=== PATIENT | female | born 1940 | race Hispanic/Latino ===

== ENCOUNTER 2018-05-01 07:19 | Emergency (ER) | payer MEDICARE ==
[~2018-05-01] VITALS: Ht 149.9 cm; Wt 63.5 kg
--- NOTE | 2018-05-01 07:52 | NUR ---
DR. SCOTT AT BEDSIDE FOR PT EVAL AT THIS TIME.
[2018-05-01] MEDS ORDERED: KETOROLAC TROMETHAMINE 60 MG/2 ML VIAL IM ONE (08:00)
[2018-05-01] MEDS ORDERED: HYDROCODONE/APAP 5MG-325MG TAB PO ONE (08:00)
--- NOTE | 2018-05-01 08:27 | Diagnostic Imaging Report ---
Exam: Left hip radiographs-2 views; AP radiograph of the pelvis; left knee radiographs-3 views Comparison: None. Findings: Left hip: No evidence of acute fracture, malalignment, or soft tissue abnormality. There are mild left hip degenerative changes. Pelvis: No evidence of acute fracture or malalignment. Mild bilateral hip degenerative changes. Partially visualized degenerative changes of the lower lumbar spine. Bowel gas partially obscures visualization of the sacrum. Well-circumscribed, likely soft tissue calcification in the left lower quadrant. Left knee: There are mild tricompartmental degenerative changes of the knee with joint space narrowing and bony osteophyte formation. No evidence of acute fracture, malalignment, or joint effusion. 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 No acute radiographic abnormality. Signed by: Dr. Ilia Loyola MD on 05/01/2018 8:23 AM
[2018-05-01 09:42] VITALS: BP 158/70
== END 2018-05-01 10:00 | disposition home or self-care (01) ==
LOC: ER 07:19
DX: M54.42 Lumbago with sciatica, left side (principal); R26.2 Difficulty in walking, not elsewhere classified; G89.29 Other chronic pain; I10 Essential (primary) hypertension
CPT/HCPCS: 73502; 73562; 99283; J1885

== ENCOUNTER 2023-01-05 07:31 | Inpatient (IN) | payer MEDICARE ==
[~2023-01-05] VITALS: Ht 144.8 cm; Wt 97.5 kg
[2023-01-05] MEDS ORDERED: ONDANSETRON HCL INJ 2MG/ML 2ML 2 MG/ML VIAL IV STA (07:41)
[2023-01-05] MEDS ORDERED: Morphine 4mg INJECTION 4 MG/ML INJ IV ONE (07:45)
[2023-01-05] MEDS ORDERED: SODIUM CHLORIDE 0.9% 1000ML 1,000 ML IV ONE (07:45)
[2023-01-05 07:57] LABS: BASOPHILS % 0.1 % (0.0-1.0); EOSINOPHILS % 0.4 % (0.0-6.0); HEMATOCRIT 38.4 % (34.2-44.1); HEMOGLOBIN 12.8 g/dL (12.0-16.0); LYMPHOCYTES # (AUTO) 1.2 (1.0-3.2); LYMPHOCYTES % 17.2 % (18.0-39.1); MEAN CORPUSCULAR HEMOGLOBIN 30.5 pg (28-32); MEAN CORPUSCULAR HGB CONC 33.3 g/dL (31-35); MEAN CORPUSCULAR VOLUME 91.4 fL (81-99); MONOCYTES # (AUTO) 0.3 (0.2-0.8); MONOCYTES % 4.5 % (4.4-11.3); NEUTROPHILS # (AUTO) 5.5 (2.1-6.9); NEUTROPHILS % 77.7 % (38.7-80.0); PLATELET COUNT 226 x10e3/uL (140-360); RED CELL DISTRIBUTION WIDTH 13.1 % (11.7-14.4); WHITE BLOOD COUNT 7.04 x10e3/uL (4.8-10.8)
[2023-01-05 08:19] LABS: ALBUMIN/GLOBULIN RATIO 1.1 (0.8-2.0); ANION GAP 15.9 mmol/L (8-16); BILIRUBIN,TOTAL 0.6 mg/dL (0.2-1.2); CALCIUM 8.7 mg/dL (8.4-10.2); CREATININE, SERUM 0.61 mg/dL (0.57-1.11); TOTAL PROTEIN 7.7 g/dL (6.5-8.1)
[2023-01-05 08:21] LABS: POTASSIUM 2.9 mmol/L (3.5-5.1)
[2023-01-05] MEDS ORDERED: IOPAMIDOL 370 MG/ML 100 ML INFUS..BTL INJ ONE (08:28)
[2023-01-05] MEDS ORDERED: POTASSIUM CHLORIDE 20MEQ/100ML 200 ML IV ONE (08:30)
[2023-01-05] MEDS ORDERED: CIPROFLOXACIN 400 MG/D5W 200ML 200 ML IV ONE (11:00)
[2023-01-05] MEDS ORDERED: METRONIDAZOLE 500MG/NS 100ML 100 ML IV ONE (11:00)
[2023-01-05] MEDS ORDERED: ENOXAPARIN INJ 80 MG/0.8 ML SYR SC STA (11:43)
[2023-01-05] MEDS ORDERED: ONDANSETRON HCL INJ 2MG/ML 2ML 2 MG/ML VIAL IV PRN (12:00)
[2023-01-05] MEDS ORDERED: METOCLOPRAMIDE HCL 10 MG/2ML VIAL ONE (13:09)
[2023-01-05] MEDS ORDERED: PROPOFOL IV EMULSION 10 MG/ML 20 ML VIAL ONE (13:09)
[2023-01-05] MEDS ORDERED: ONDANSETRON HCL INJ 2MG/ML 2ML 2 MG/ML VIAL ONE (13:09)
[2023-01-05] MEDS ORDERED: LIDOCAINE HCL 2% LOCAL INJ 5 ML SDV VIAL INJ ONE (13:09)
[2023-01-05 13:15] VITALS: BP_SYST 129; BP_SYST 139; BP_DIAS 73; BP_DIAS 79; PULSE 52; RESP 19; TEMP 98.2; O2SAT 99
[2023-01-05 13:28] VITALS: BP 129/73; PULSE 52; RESP 16; TEMP 98.2; O2SAT 99
[2023-01-05] MEDS: SODIUM CHLORIDE 0.9% 1000ML 1,000 ML IV SCH ×2 (15:18→20:55)
[2023-01-05 15:48] VITALS: BP 118/53; PULSE 63; RESP 16; TEMP 98; O2SAT 99
[2023-01-05 20:00] VITALS: BP 113/53; PULSE 84; PULSE 86; RESP 18; TEMP 98.8; O2SAT 99
[2023-01-05 21:00] VITALS: BP 118/53; PULSE 63; RESP 16; TEMP 98; O2SAT 99
[2023-01-06] VITALS (8 sets, daily range): BP systolic 105–163; BP diastolic 53–87; PULSE 68–84; RESP 15–18; TEMP 97.7–98.7; O2SAT 97–100
[2023-01-06] MEDS: SODIUM CHLORIDE 0.9% 1000ML 1,000 ML IV SCH ×3 (06:18→23:51)
[2023-01-06 07:35] LABS: BASOPHILS % 0.6 % (0.0-1.0); EOSINOPHILS % 0.9 % (0.0-6.0); HEMATOCRIT 32.9 % (34.2-44.1); HEMOGLOBIN 10.8 g/dL (12.0-16.0); LYMPHOCYTES # (AUTO) 1.1 (1.0-3.2); LYMPHOCYTES % 32.4 % (18.0-39.1); MEAN CORPUSCULAR HEMOGLOBIN 30.4 pg (28-32); MEAN CORPUSCULAR HGB CONC 32.8 g/dL (31-35); MEAN CORPUSCULAR VOLUME 92.7 fL (81-99); MONOCYTES # (AUTO) 0.2 (0.2-0.8); MONOCYTES % 7.2 % (4.4-11.3); NEUTROPHILS % 58.9 % (38.7-80.0); PLATELET COUNT 179 x10e3/uL (140-360); RED BLOOD COUNT 3.55 x10e6/uL (3.6-5.1); RED CELL DISTRIBUTION WIDTH 13.4 % (11.7-14.4); WHITE BLOOD COUNT 3.33 x10e3/uL (4.8-10.8)
[2023-01-06 09:46] LABS: ALBUMIN 2.9 g/dL (3.5-5.0); ANION GAP 10.9 mmol/L (8-16); BILIRUBIN,TOTAL 0.5 mg/dL (0.2-1.2); CALCIUM 7.6 mg/dL (8.4-10.2); CREATININE, SERUM 0.55 mg/dL (0.57-1.11); TOTAL PROTEIN 5.8 g/dL (6.5-8.1)
[2023-01-06 09:47] LABS: POTASSIUM 2.9 mmol/L (3.5-5.1)
[2023-01-06] MEDS ORDERED: POTASSIUM CHLORIDE 10MEQ EA PO ONE ×3 (10:45→16:00)
[2023-01-06] MEDS ORDERED: LOPERAMIDE HCL 2 MG CAP PO ONE (17:00)
[2023-01-07] VITALS (8 sets, daily range): BP systolic 108–166; BP diastolic 51–86; PULSE 79–93; RESP 16–49; TEMP 97.7–98.4; O2SAT 98–100
[2023-01-07 05:52] LABS: BASOPHILS % 0.2 % (0.0-1.0); EOSINOPHILS # (AUTO) 0.1 (0.0-0.4); EOSINOPHILS % 1.5 % (0.0-6.0); HEMATOCRIT 31.2 % (34.2-44.1); HEMOGLOBIN 10.4 g/dL (12.0-16.0); LYMPHOCYTES # (AUTO) 1.3 (1.0-3.2); LYMPHOCYTES % 28.6 % (18.0-39.1); MEAN CORPUSCULAR HGB CONC 33.3 g/dL (31-35); MEAN CORPUSCULAR VOLUME 92.9 fL (81-99); MONOCYTES # (AUTO) 0.4 (0.2-0.8); MONOCYTES % 9.7 % (4.4-11.3); NEUTROPHILS # (AUTO) 2.7 (2.1-6.9); NEUTROPHILS % 59.8 % (38.7-80.0); PLATELET COUNT 179 x10e3/uL (140-360); RED BLOOD COUNT 3.36 x10e6/uL (3.6-5.1); RED CELL DISTRIBUTION WIDTH 13.6 % (11.7-14.4); WHITE BLOOD COUNT 4.54 x10e3/uL (4.8-10.8)
[2023-01-07 06:27] LABS: ANION GAP 9.8 mmol/L (8-16); BLOOD UREA NITROGEN < 5 mg/dL (7-26); CALCIUM 8.1 mg/dL (8.4-10.2); CARBON DIOXIDE 19 mmol/L (22-29); CHLORIDE 116 mmol/L (98-107); CREATININE, SERUM 0.51 mg/dL (0.57-1.11); EST GLOMERULAR FILTRATION RATE 94 ML/MIN (>=60); GLUCOSE 100 mg/dL (74-118); POTASSIUM 3.8 mmol/L (3.5-5.1); SODIUM 141 mmol/L (136-145)
[2023-01-07 07:13] LABS: BUN/CREATININE RATIO 10 (6-25)
[2023-01-07] MEDS: SODIUM CHLORIDE 0.9% 1000ML 1,000 ML IV SCH (13:03)
[2023-01-07] MEDS ORDERED: BISACODYL 5 MG TAB EC PO ONE ×3 (14:15→18:00)
[2023-01-07] MEDS ORDERED: HYDRALAZINE HCL 20 MG/ML VIAL IV PRN (18:45)
[2023-01-08] VITALS (9 sets, daily range): BP systolic 133–168; BP diastolic 53–80; PULSE 74–96; RESP 16–20; TEMP 97.4–98.7; O2SAT 99–100
[2023-01-08] MEDS ORDERED: BISACODYL 5 MG TAB EC PO ONE (01:45)
[2023-01-08] MEDS ORDERED: CITRATE OF MAGNESIA 300ML BOTTLE PO ONE ×2 (05:00→09:00)
[2023-01-08] MEDS: SODIUM CHLORIDE 0.9% 1000ML 1,000 ML IV SCH (06:46)
[2023-01-08 08:53] LABS: % IRON SATURATION 15 % (15-50); IRON 49 ug/dL (50-170); TOTAL IRON BINDING CAPACITY 336 ug/dL (261-478); TRANSFERRIN 240 mg/dL (180-382)
[2023-01-08 09:27] LABS: FOLATE 11.5 ng/mL (7.0-15.4)
[2023-01-08 19:18] LABS: WBC,FECAL (FECAL LACTOFERRIN) POSITIVE (NEGATIVE)
[2023-01-09] VITALS: BP 126/56; PULSE 70; RESP 22; TEMP 98.4; O2SAT 100
[2023-01-09] MEDS: SODIUM CHLORIDE 0.9% 1000ML 1,000 ML IV SCH (01:01)
[2023-01-09 04:50] VITALS: BP 144/54; PULSE 67; RESP 19; TEMP 98; O2SAT 98
[2023-01-09 08:20] VITALS: BP 138/61; PULSE 70; RESP 19; TEMP 97.8; O2SAT 98
[2023-01-09 08:44] VITALS: BP 138/61; PULSE 70; RESP 18; TEMP 97.8; O2SAT 99
[2023-01-09 12:53] VITALS: BP 154/74; PULSE 74; RESP 16; TEMP 98.1; O2SAT 100
[2023-01-09 16:08] VITALS: BP 152/74; PULSE 80; RESP 16; TEMP 98.4; O2SAT 100
== END 2023-01-09 18:52 | disposition home or self-care (01) | DRG 392 ==
LOC: ER 07:35 → ERHOLD 11:57 → MED/SURG3 13:02 → OBSVTOIN 01-08 07:47
PROVIDERS: ADMIT Internal Medicine; ATTEND Internal Medicine
PROC: 0DBN8ZX Excision of Sigmoid Colon, Via Natural or Artificial Opening Endoscopic, Diagnostic (ICD-10-PCS; principal; 2023-01-08 17:47)
DX: K52.9 Noninfective gastroenteritis and colitis, unspecified (principal); K57.30 Diverticulosis of large intestine without perforation or abscess without bleeding; E87.6 Hypokalemia; I48.91 Unspecified atrial fibrillation; I10 Essential (primary) hypertension; E78.5 Hyperlipidemia, unspecified; R31.9 Hematuria, unspecified; K63.5 Polyp of colon; K64.8 Other hemorrhoids; Z90.49 Acquired absence of other specified parts of digestive tract; Z20.822 Contact with and (suspected) exposure to COVID-19
CPT/HCPCS: 36415; 45378; 74177; 80048; 80053; 82607; 82746; 83540; 83630; 83690; 83993; 84466; 85025; 85045; 87045; 87177; 87324; 87328; 87449; 88305; 93005; 99284; G0378; J1650; J2001; J2270; J2405; J2765; J3480; J7030; Q9967; U0002

== ENCOUNTER 2023-08-24 12:38 | Emergency (ER) | payer MEDICARE ==
[~2023-08-24] VITALS: Ht 144.8 cm; Wt 97.5 kg
[2023-08-24] MEDS ORDERED: CEFTRIAXONE 1 GM VIAL IV SCH (13:00)
[2023-08-24] MEDS: ACETAMINOPHEN 325 MG TAB PO ONE (13:28)
[2023-08-24 13:36] LABS: ALBUMIN 3.9 g/dL (3.5-5.0); ANION GAP 15.7 mmol/L (8-16); BILIRUBIN,TOTAL 0.5 mg/dL (0.2-1.2); CALCIUM 9.1 mg/dL (8.4-10.2); CREATININE, SERUM 0.64 mg/dL (0.57-1.11); POTASSIUM 3.7 mmol/L (3.5-5.1)
[2023-08-24 13:37] LABS: BASOPHILS % 0.3 % (0.0-1.0); EOSINOPHILS # (AUTO) 0.1 (0.0-0.4); EOSINOPHILS % 1.3 % (0.0-6.0); HEMATOCRIT 37.2 % (34.2-44.1); LYMPHOCYTES # (AUTO) 0.7 (1.0-3.2); LYMPHOCYTES % 10.4 % (18.0-39.1); MEAN CORPUSCULAR HEMOGLOBIN 31.2 pg (28-32); MEAN CORPUSCULAR HGB CONC 32.3 g/dL (31-35); MEAN CORPUSCULAR VOLUME 96.6 fL (81-99); MONOCYTES # (AUTO) 0.5 (0.2-0.8); MONOCYTES % 7.6 % (4.4-11.3); NEUTROPHILS # (AUTO) 5.4 (2.1-6.9); NEUTROPHILS % 80.1 % (38.7-80.0); PLATELET COUNT 195 x10e3/uL (140-360); RED BLOOD COUNT 3.85 x10e6/uL (3.6-5.1); RED CELL DISTRIBUTION WIDTH 12.8 % (11.7-14.4); WHITE BLOOD COUNT 6.72 x10e3/uL (4.8-10.8)
[2023-08-24 13:54] LABS: CLARITY,URINE CLEAR (CLEAR); COLOR,URINE COLORLESS (YELLOW); LEUKOCYTE ESTERASE ,URINE TRACE (NEGATIVE); PH,URINE 6 (5 - 7)
[2023-08-24 13:55] LABS: BILIRUBIN,URINE NEGATIVE (NEGATIVE); GLUCOSE, URINE NEGATIVE (NEGATIVE); KETONES,URINE NEGATIVE (NEGATIVE); NITRITE,URINE NEGATIVE (NEGATIVE); PROTEIN,URINE DIPSTICK NEGATIVE (NEGATIVE); URINE UROBILINOGEN 0.2 mg/dL (0.2 - 1)
[2023-08-24 13:59] LABS: BACTERIA,URINE RARE /HPF; EPITHELIAL CELLS,URINE RARE /LPF; WBC,URINE (MAN) 0-5 /HPF (0-5)
[2023-08-24 14:07] LABS: INR 0.95; PROTHROMBIN TIME 13.4 seconds (11.9-14.5)
[2023-08-24 14:08] LABS: PARTIAL THROMBOPLASTIN TIME 37.1 seconds (23.8-35.5)
[2023-08-24] MEDS ORDERED: PAXLOVID 300-11 EAC1 PO (14:53)
[2023-08-24 15:00] VITALS: PULSE 87; RESP 20; TEMP 99.2; O2SAT 98
[2023-08-25] MEDS ORDERED: AZITHROMYCIN 250 MG TAB PO SCH (09:00)
== END 2023-08-24 15:15 | disposition home or self-care (01) ==
LOC: ER 12:54
DX: R50.9 Fever, unspecified (principal); U07.1 COVID-19; R05.9 Cough, unspecified; I10 Essential (primary) hypertension; E78.5 Hyperlipidemia, unspecified
CPT/HCPCS: 36415; 71046; 80053; 81001; 83605; 85025; 85610; 85730; 87040; 87086; 87400; 93005; 99284; J0456; J0696; J7050; U0002

== ENCOUNTER 2024-01-07 18:45 | Emergency (ER) | payer MEDICARE ==
[~2024-01-07] VITALS: Ht 149.9 cm; Wt 52.2 kg
[~2024-01-07 18:45] MED LIST: PAXLOVID 300-11 EAC1 PO
[2024-01-07 19:03] VITALS: PULSE 57; TEMP 98.1
[2024-01-07 20:01] LABS: STREPTOCOCCUS GRP A ANTIGEN NEGATIVE (NEGATIVE)
[2024-01-07 20:09] LABS: CORONAVIRUS COVID-19 AG NEGATIVE (NEGATIVE); INFLUENZA A AG NEGATIVE (NEGATIVE); INFLUENZA B AG NEGATIVE (NEGATIVE)
[2024-01-07] MEDS ORDERED: DOXYCYCLINE HY100 MG PO (21:26)
[2024-01-07] MEDS ORDERED: ONDANSETRON ODT4 MG SL (21:26)
[2024-01-07 21:43] VITALS: BP 132/52; PULSE 93; RESP 18; TEMP 98.5; O2SAT 98
[2024-01-07] MEDS: DOXYCYCLINE HYCLATE TABLET 100 MG TAB PO SCH (21:46)
== END 2024-01-07 21:53 | disposition home or self-care (01) ==
LOC: ER 19:35
DX: R05.9 Cough, unspecified (principal); J18.9 Pneumonia, unspecified organism; I10 Essential (primary) hypertension; E78.5 Hyperlipidemia, unspecified
CPT/HCPCS: 0223U; 71045; 83518; 87070; 87400; 87428; 99283

== ENCOUNTER 2024-01-16 19:59 | Inpatient (IN) | payer MEDICARE ==
[~2024-01-16] VITALS: Ht 149.9 cm; Wt 45.4 kg
[~2024-01-16 19:59] MED LIST changes: +DOXYCYCLINE HY100 MG PO; +ONDANSETRON ODT4 MG SL
[2024-01-16 20:44] LABS: BASOPHILS % 0.2 % (0.0-1.0); HEMATOCRIT 31.8 % (34.2-44.1); HEMOGLOBIN 9.7 g/dL (12.0-16.0); LYMPHOCYTES # (AUTO) 0.9 (1.0-3.2); LYMPHOCYTES % 5.6 % (18.0-39.1); MEAN CORPUSCULAR HEMOGLOBIN 28.4 pg (28-32); MEAN CORPUSCULAR HGB CONC 30.5 g/dL (31-35); MONOCYTES # (AUTO) 1.2 (0.2-0.8); MONOCYTES % 7.5 % (4.4-11.3); NEUTROPHILS # (AUTO) 14.2 (2.1-6.9); NEUTROPHILS % 86.3 % (38.7-80.0); PLATELET COUNT 304 x10e3/uL (140-360); RED BLOOD COUNT 3.42 x10e6/uL (3.6-5.1); WHITE BLOOD COUNT 16.51 x10e3/uL (4.8-10.8)
[2024-01-16 20:51] LABS: BILIRUBIN,URINE NEGATIVE (NEGATIVE); CLARITY,URINE CLEAR (CLEAR); COLOR,URINE YELLOW (YELLOW); GLUCOSE, URINE NEGATIVE (NEGATIVE); KETONES,URINE 1+ (NEGATIVE); LEUKOCYTE ESTERASE ,URINE NEGATIVE (NEGATIVE); NITRITE,URINE NEGATIVE (NEGATIVE); PH,URINE 5.5 (5 - 7); PROTEIN,URINE DIPSTICK NEGATIVE (NEGATIVE); URINE UROBILINOGEN 0.2 mg/dL (0.2 - 1)
[2024-01-16] MEDS: ACETAMINOPHEN 325 MG TAB PO ONE (20:57)
[2024-01-16] MEDS: SODIUM CHLORIDE 0.9% 1000ML 1,000 ML IV ONE ×2 (20:57→22:55)
[2024-01-16 20:58] LABS: ALBUMIN 3.2 g/dL (3.5-5.0); ALBUMIN/GLOBULIN RATIO 0.7 (0.8-2.0); ANION GAP 16.6 mmol/L (8-16); BILIRUBIN,TOTAL 0.9 mg/dL (0.2-1.2); CREATININE, SERUM 0.66 mg/dL (0.57-1.11); POTASSIUM 3.6 mmol/L (3.5-5.1); TOTAL PROTEIN 7.6 g/dL (6.5-8.1)
[2024-01-16 21:01] LABS: CORONAVIRUS COVID-19 AG NEGATIVE (NEGATIVE); INFLUENZA A AG NEGATIVE (NEGATIVE); INFLUENZA B AG NEGATIVE (NEGATIVE)
[2024-01-16 21:05] LABS: TROPONIN I 0.016 ng/mL (0-0.300)
[2024-01-16 21:07] LABS: BACTERIA,URINE RARE /HPF; EPITHELIAL CELLS,URINE RARE /LPF; RBC,URINE 0-5 /HPF (0-5)
[2024-01-16] MEDS ORDERED: IOPAMIDOL 370 MG/ML 100 ML INFUS..BTL INJ ONE (21:10)
[2024-01-16] MEDS ORDERED: Morphine 4mg INJECTION 4 MG/ML INJ IV PRN (22:30)
[2024-01-16 22:53] VITALS: PULSE 95; RESP 26; TEMP 99
[2024-01-17] VITALS (10 sets, daily range): BP systolic 94–128; BP diastolic 43–65; PULSE 88–104; RESP 16–21; TEMP 97.8–100; O2SAT 96–100
[2024-01-17] MEDS ORDERED: METRONIDAZOLE 500MG/NS 100ML 100 ML IV SCH
[2024-01-17] MEDS ORDERED: SODIUM CHLORIDE 0.9% 250ML 0 ML ONE (00:14)
[2024-01-17] MEDS: METRONIDAZOLE 500MG/NS 100ML 100 ML IV SCH (00:20)
[2024-01-17] MEDS ORDERED: LOSARTAN POTAS100 MG PO (01:41)
[2024-01-17] MEDS ORDERED: ALENDRONATE SOD70 MG PO (01:41)
[2024-01-17] MEDS ORDERED: ATORVASTATIN CA40 MG PO (01:41)
[2024-01-17 05:39] LABS: BASOPHILS % 0.3 % (0.0-1.0); EOSINOPHILS % 0.2 % (0.0-6.0); HEMATOCRIT 28.4 % (34.2-44.1); HEMOGLOBIN 8.7 g/dL (12.0-16.0); LYMPHOCYTES # (AUTO) 1.2 (1.0-3.2); LYMPHOCYTES % 7.8 % (18.0-39.1); MEAN CORPUSCULAR HEMOGLOBIN 28.5 pg (28-32); MEAN CORPUSCULAR HGB CONC 30.6 g/dL (31-35); MEAN CORPUSCULAR VOLUME 93.1 fL (81-99); MONOCYTES # (AUTO) 1.2 (0.2-0.8); MONOCYTES % 7.5 % (4.4-11.3); NEUTROPHILS # (AUTO) 13.3 (2.1-6.9); NEUTROPHILS % 83.6 % (38.7-80.0); PLATELET COUNT 280 x10e3/uL (140-360); RED BLOOD COUNT 3.05 x10e6/uL (3.6-5.1); RED CELL DISTRIBUTION WIDTH 14.1 % (11.7-14.4)
[2024-01-17 05:59] LABS: ALBUMIN 2.6 g/dL (3.5-5.0); ALBUMIN/GLOBULIN RATIO 0.7 (0.8-2.0); ANION GAP 13.2 mmol/L (8-16); BILIRUBIN,TOTAL 0.6 mg/dL (0.2-1.2); CALCIUM 8.4 mg/dL (8.4-10.2); CREATININE, SERUM 0.53 mg/dL (0.57-1.11); TOTAL PROTEIN 6.1 g/dL (6.5-8.1)
[2024-01-17 06:09] LABS: POTASSIUM 3.2 mmol/L (3.5-5.1)
[2024-01-17] MEDS: ONDANSETRON HCL INJ 2MG/ML 2ML 2 MG/ML VIAL IV PRN (08:38)
[2024-01-17] MEDS: ACETAMINOPHEN 325 MG TAB PO PRN (20:22)
[2024-01-17] MEDS ORDERED: SODIUM CHLORIDE 0.9% 250ML 250 ML ONE (20:26)
[2024-01-17 21:21] LABS: % IRON SATURATION 8 % (15-50); IRON 23 ug/dL (50-170); TOTAL IRON BINDING CAPACITY 284 ug/dL (261-478); TRANSFERRIN 203 mg/dL (180-382)
[2024-01-18] VITALS (11 sets, daily range): BP systolic 100–155; BP diastolic 46–84; PULSE 62–97; RESP 16–18; TEMP 97.8–98.2; O2SAT 87–100
[2024-01-18 05:05] LABS: BASOPHILS % 0.3 % (0.0-1.0); EOSINOPHILS # (AUTO) 0.1 (0.0-0.4); EOSINOPHILS % 1.1 % (0.0-6.0); HEMATOCRIT 26.2 % (34.2-44.1); HEMOGLOBIN 8.3 g/dL (12.0-16.0); LYMPHOCYTES # (AUTO) 1.7 (1.0-3.2); MEAN CORPUSCULAR HEMOGLOBIN 28.4 pg (28-32); MEAN CORPUSCULAR HGB CONC 31.7 g/dL (31-35); MEAN CORPUSCULAR VOLUME 89.7 fL (81-99); MONOCYTES # (AUTO) 0.8 (0.2-0.8); MONOCYTES % 7.9 % (4.4-11.3); NEUTROPHILS # (AUTO) 7.7 (2.1-6.9); NEUTROPHILS % 74.2 % (38.7-80.0); PLATELET COUNT 274 x10e3/uL (140-360); RED BLOOD COUNT 2.92 x10e6/uL (3.6-5.1); RED CELL DISTRIBUTION WIDTH 14.1 % (11.7-14.4); WHITE BLOOD COUNT 10.37 x10e3/uL (4.8-10.8)
[2024-01-18 05:47] LABS: ALBUMIN 2.3 g/dL (3.5-5.0); ALBUMIN/GLOBULIN RATIO 0.6 (0.8-2.0); ANION GAP 10.7 mmol/L (8-16); BILIRUBIN,TOTAL 0.6 mg/dL (0.2-1.2); CALCIUM 8.2 mg/dL (8.4-10.2); CREATININE, SERUM 0.47 mg/dL (0.57-1.11)
[2024-01-18 05:48] LABS: POTASSIUM 2.7 mmol/L (3.5-5.1)
[2024-01-18] MEDS: IRON SUCROSE 100 MG in SODIUM CHLORIDE 0.9% 100 ML IV SCH (08:20)
[2024-01-18] MEDS ORDERED: MAGNESIUM HYDROXIDE 30 ML UDC PO ONE (09:00)
[2024-01-18] MEDS: POTASSIUM CHLORIDE 20 MEQ TAB CR PO ONE ×3 (14:31→21:01)
[2024-01-18] MEDS: MAGNESIUM HYDROXIDE 30 ML UDC PO ONE (22:00)
[2024-01-19] VITALS (7 sets, daily range): BP systolic 125–150; BP diastolic 60–71; PULSE 80–100; RESP 16–18; TEMP 97.9–98.2; O2SAT 98–100
[2024-01-20] VITALS (8 sets, daily range): BP systolic 109–155; BP diastolic 57–90; PULSE 82–107; RESP 16–18; TEMP 97.9–98.7; O2SAT 98–100
[2024-01-20 05:38] LABS: BASOPHILS % 0.5 % (0.0-1.0); EOSINOPHILS # (AUTO) 0.2 (0.0-0.4); HEMATOCRIT 31.2 % (34.2-44.1); HEMOGLOBIN 9.4 g/dL (12.0-16.0); LYMPHOCYTES # (AUTO) 1.8 (1.0-3.2); LYMPHOCYTES % 29.4 % (18.0-39.1); MEAN CORPUSCULAR HEMOGLOBIN 28.2 pg (28-32); MEAN CORPUSCULAR HGB CONC 30.1 g/dL (31-35); MEAN CORPUSCULAR VOLUME 93.7 fL (81-99); MONOCYTES # (AUTO) 0.7 (0.2-0.8); MONOCYTES % 10.7 % (4.4-11.3); NEUTROPHILS # (AUTO) 3.5 (2.1-6.9); NEUTROPHILS % 56.1 % (38.7-80.0); PLATELET COUNT 362 x10e3/uL (140-360); RED BLOOD COUNT 3.33 x10e6/uL (3.6-5.1); RED CELL DISTRIBUTION WIDTH 14.2 % (11.7-14.4); WHITE BLOOD COUNT 6.26 x10e3/uL (4.8-10.8)
[2024-01-20 05:52] LABS: ANION GAP 12.5 mmol/L (8-16); CALCIUM 8.9 mg/dL (8.4-10.2); CREATININE, SERUM 0.55 mg/dL (0.57-1.11); POTASSIUM 4.5 mmol/L (3.5-5.1)
[2024-01-20] MEDS ORDERED: METRONIDAZOLE500 MG PO (19:23)
[2024-01-20] MEDS ORDERED: LEVOFLOXACIN250 MG PO (19:26)
== END 2024-01-20 20:40 | disposition home or self-care (01) | DRG 391 ==
LOC: ER 20:03 → ERHOLD 23:03 → MED/SURG 23:56
PROVIDERS: ADMIT Internal Medicine; ATTEND Internal Medicine
DX: K57.12 Diverticulitis of small intestine without perforation or abscess without bleeding (principal); E43 Unspecified severe protein-calorie malnutrition; J84.10 Pulmonary fibrosis, unspecified; D50.9 Iron deficiency anemia, unspecified; I10 Essential (primary) hypertension; E78.5 Hyperlipidemia, unspecified; R13.10 Dysphagia, unspecified; E87.6 Hypokalemia; Z71.3 Dietary counseling and surveillance; Z68.20 Body mass index [BMI] 20.0-20.9, adult; Z87.01 Personal history of pneumonia (recurrent); Z11.52 Encounter for screening for COVID-19; Z79.899 Other long term (current) drug therapy
CPT/HCPCS: 36415; 71045; 74177; 80048; 80053; 81001; 82550; 82607; 82746; 83540; 83605; 83880; 84466; 84484; 85025; 85045; 87040; 87086; 93005; 94799; 96361; 96365; 99252; 99284; J0692; J0696; J1756; J2405; J7030; J7050; Q9967

== ENCOUNTER 2024-04-22 11:59 | Emergency (ER) | payer MEDICARE ==
[~2024-04-22] VITALS: Ht 134.6 cm; Wt 45.4 kg
[~2024-04-22 11:59] MED LIST changes: +ALENDRONATE SOD70 MG PO; +ATORVASTATIN CA40 MG PO; +LEVOFLOXACIN250 MG PO; +LOSARTAN POTAS100 MG PO; +METRONIDAZOLE500 MG PO
[2024-04-22 12:20] VITALS: PULSE 93; RESP 18; TEMP 98.1
[2024-04-22 13:34] LABS: BASOPHILS % 0.6 % (0.0-1.0); EOSINOPHILS # (AUTO) 0.2 (0.0-0.4); EOSINOPHILS % 3.4 % (0.0-6.0); HEMATOCRIT 31.3 % (34.2-44.1); HEMOGLOBIN 10.2 g/dL (12.0-16.0); LYMPHOCYTES # (AUTO) 1.2 (1.0-3.2); LYMPHOCYTES % 18.9 % (18.0-39.1); MEAN CORPUSCULAR HEMOGLOBIN 29.2 pg (28-32); MEAN CORPUSCULAR HGB CONC 32.6 g/dL (31-35); MEAN CORPUSCULAR VOLUME 89.7 fL (81-99); MONOCYTES # (AUTO) 0.5 (0.2-0.8); MONOCYTES % 8.3 % (4.4-11.3); NEUTROPHILS # (AUTO) 4.3 (2.1-6.9); NEUTROPHILS % 68.3 % (38.7-80.0); PLATELET COUNT 274 x10e3/uL (140-360); RED BLOOD COUNT 3.49 x10e6/uL (3.6-5.1); RED CELL DISTRIBUTION WIDTH 14.5 % (11.7-14.4); WHITE BLOOD COUNT 6.25 x10e3/uL (4.8-10.8)
[2024-04-22 13:42] LABS: ALBUMIN 3.5 g/dL (3.5-5.0); ALBUMIN/GLOBULIN RATIO 0.9 (0.8-2.0); ANION GAP 13.5 mmol/L (8-16); BILIRUBIN,TOTAL 0.4 mg/dL (0.2-1.2); CREATININE, SERUM 0.55 mg/dL (0.57-1.11); POTASSIUM 3.5 mmol/L (3.5-5.1); TOTAL PROTEIN 7.6 g/dL (6.5-8.1)
[2024-04-22 13:42] LABS: CORONAVIRUS COVID-19 AG NEGATIVE (NEGATIVE); INFLUENZA A AG NEGATIVE (NEGATIVE); INFLUENZA B AG NEGATIVE (NEGATIVE)
[2024-04-22 13:47] LABS: TROPONIN I 0.008 ng/mL (0-0.300)
[2024-04-22] MEDS: ASPIRIN 81 MG CHEW TAB PO ONE (13:59)
[2024-04-22 14:24] VITALS: PULSE 92; RESP 18; O2SAT 96
[2024-04-22 14:25] VITALS: PULSE 92; RESP 18; O2SAT 96
[2024-04-22] MEDS: ALBUTEROL/IPRATROPIUM 3 ML NEB NEB ONE (14:25)
[2024-04-22] MEDS: DEXAMETHASONE SOD PHOS 10 MG/1 ML VIAL IV ONE (14:42)
[2024-04-22] MEDS ORDERED: DOXYCYCLINE HY100 MG PO (14:45)
[2024-04-22] MEDS ORDERED: VENTOLIN HFA18 GM INH (14:45)
[2024-04-22] MEDS ORDERED: MEDROL4 M2 PO (14:45)
== END 2024-04-22 15:08 | disposition home or self-care (01) ==
LOC: ER 13:06
DX: R05.3 Chronic cough (principal); J84.10 Pulmonary fibrosis, unspecified; I10 Essential (primary) hypertension; E78.5 Hyperlipidemia, unspecified; Z11.52 Encounter for screening for COVID-19; R94.31 Abnormal electrocardiogram [ECG] [EKG]
CPT/HCPCS: 36415; 71045; 80053; 82550; 83880; 84484; 85025; 87040; 87428; 93005; 94640; 94799; 99284; J1100

== ENCOUNTER 2024-10-18 21:57 | Inpatient (IN) | payer MEDICARE ==
[~2024-10-18] VITALS: Ht 160 cm; Wt 54.4 kg
[~2024-10-18 21:57] MED LIST changes: +MEDROL4 M2 PO; +VENTOLIN HFA18 GM INH
[2024-10-18] MEDS: LEVOFLOXACIN 750MG/D5W 150ML 150 ML IV SCH (22:32)
[2024-10-18] MEDS: SODIUM CHLORIDE 0.9% 1000ML 1,000 ML IV STA ×2 (22:32)
[2024-10-18] MEDS: ACETAMINOPHEN 325 MG TAB PO STA (22:33)
[2024-10-18 22:34] LABS: BASOPHILS % 0.2 % (0.0-1.0); EOSINOPHILS % 1.3 % (0.0-6.0); LYMPHOCYTES % 10.0 % (18.0-39.1); MONOCYTES % 10.6 % (4.4-11.3); NEUTROPHILS % 77.6 % (38.7-80.0); RED CELL DISTRIBUTION WIDTH 14.1 % (11.7-14.4)
[2024-10-18] MEDS: Morphine 4mg INJECTION 4 MG/ML INJ IV STA (22:34)
[2024-10-18] MEDS: ONDANSETRON HCL INJ 2MG/ML 2ML 2 MG/ML VIAL IV STA (22:34)
[2024-10-18 22:58] LABS: EST GLOMERULAR FILTRATION RATE 93.0 ML/MIN (>=60)
[2024-10-18] MEDS ORDERED: IOPAMIDOL 370 MG/ML 100 ML INFUS..BTL INJ ONE (23:16)
[2024-10-19] VITALS (13 sets, daily range): BP systolic 116–162; BP diastolic 57–79; PULSE 73–102; RESP 17–27; TEMP 97.4–98.7; O2SAT 95–100
[2024-10-19 01:11] LABS: LEUKOCYTE ESTERASE ,URINE NEGATIVE (NEGATIVE); PROTEIN,URINE DIPSTICK NEGATIVE (NEGATIVE); URINE UROBILINOGEN 0.2 mg/dL (0.2 - 1)
[2024-10-19] MEDS ORDERED: Morphine 4mg INJECTION 4 MG/ML INJ IV PRN ×2 (01:15→08:45)
[2024-10-19 01:19] LABS: EPITHELIAL CELLS,URINE FEW /LPF; WBC,URINE (MAN) 0-5 /HPF (0-5)
[2024-10-19] MEDS ORDERED: ONDANSETRON HCL INJ 2MG/ML 2ML 2 MG/ML VIAL IV PRN ×2 (02:00→08:45)
[2024-10-19] MEDS: SODIUM CHLORIDE 0.9% 1000ML 1,000 ML IV SCH (03:09)
[2024-10-19] MEDS ORDERED: FENTANYL CITRATE/PF 100MCG/2 ML INJ ONE (07:16)
[2024-10-19] MEDS ORDERED: LIDOCAINE HCL 2% LOCAL INJ 5 ML SDV VIAL INJ ONE (07:16)
[2024-10-19] MEDS ORDERED: SUCCINYLCHOLINE CHLORIDE 20 MG/ML 10ML VIAL ONE (07:17)
[2024-10-19] MEDS ORDERED: ROCURONIUM BROMIDE 1 ML IV ONE (07:17)
[2024-10-19] MEDS ORDERED: PROPOFOL IV EMULSION 10 MG/ML 20 ML VIAL ONE (07:18)
[2024-10-19] MEDS ORDERED: METOCLOPRAMIDE HCL 10 MG/2ML VIAL ONE (07:54)
[2024-10-19] MEDS ORDERED: DEXAMETHASONE SOD PHOS INJ 4 MG/ML SDV ONE (07:54)
[2024-10-19] MEDS ORDERED: KETOROLAC TROMETHAMINE 30 MG/ML VIAL ONE (07:54)
[2024-10-19] MEDS ORDERED: ONDANSETRON HCL INJ 2MG/ML 2ML 2 MG/ML VIAL ONE (07:54)
[2024-10-19] MEDS ORDERED: SUGAMMADEX SODIUM 200 MG/2 ML VIAL IV ONE ×2 (08:06→08:34)
[2024-10-19] MEDS ORDERED: ACETAMINOPHEN 325 MG TAB PO PRN ×2 (08:45→15:30)
[2024-10-19] MEDS: BUPIVACAINE LIPOSOME/PF 266 MG/20 ML IJ ONE (09:15)
[2024-10-19] MEDS ORDERED: LEVOFLOXACIN 750MG/D5W 150ML 150 ML IV SCH (15:45)
[2024-10-19] MEDS ORDERED: SEVOFLURANE INHAL SOLN 250 ML PEN BTL ONE (17:33)
[2024-10-19] MEDS: METRONIDAZOLE 500MG/NS 100ML 100 ML IV SCH (21:34)
[2024-10-19] MEDS: CIPROFLOXACIN 400 MG/D5W 200ML 200 ML IV SCH (22:46)
[2024-10-20] VITALS (9 sets, daily range): BP systolic 115–151; BP diastolic 45–72; PULSE 81–94; RESP 17–20; TEMP 97.5–98.1; O2SAT 95–100
[2024-10-20 06:08] LABS: BASOPHILS % 0.3 % (0.0-1.0); EOSINOPHILS % 1.0 % (0.0-6.0); LYMPHOCYTES % 27.5 % (18.0-39.1); MONOCYTES % 9.6 % (4.4-11.3); NEUTROPHILS % 61.4 % (38.7-80.0); RED CELL DISTRIBUTION WIDTH 14.1 % (11.7-14.4)
[2024-10-20 06:42] LABS: EST GLOMERULAR FILTRATION RATE 95.0 ML/MIN (>=60)
[2024-10-20] MEDS: LOSARTAN POTASSIUM 100 MG TAB PO SCH (09:02)
[2024-10-21] VITALS (9 sets, daily range): BP systolic 117–154; BP diastolic 53–70; PULSE 80–104; RESP 16–18; TEMP 97.4–98.4; O2SAT 94–100
[2024-10-22] VITALS (9 sets, daily range): BP systolic 122–150; BP diastolic 55–73; PULSE 84–97; RESP 17–18; TEMP 97.6–98.1; O2SAT 98–100
[2024-10-22] MEDS ORDERED: TRAMADOL HCL 50 MG TAB PO PRN (06:15)
[2024-10-23] VITALS (9 sets, daily range): BP systolic 123–151; BP diastolic 55–86; PULSE 82–98; RESP 18–20; TEMP 97.3–98.4; O2SAT 96–100
[2024-10-23] MEDS: MINERAL OIL 132 ML BTL PR ONE (08:57)
[2024-10-24 03:30] VITALS: BP 127/55; PULSE 86; RESP 16; TEMP 97.4; O2SAT 99
[2024-10-24 03:35] VITALS: BP_SYST 127; BP_SYST 162; BP_DIAS 55; BP_DIAS 74; PULSE 69; PULSE 86; RESP 16; RESP 18; TEMP 97.4; TEMP 98.2; O2SAT 97; O2SAT 99
[2024-10-24 07:39] VITALS: PULSE 85; RESP 18; O2SAT 97
[2024-10-24 08:00] VITALS: BP 132/71; PULSE 89; RESP 18; TEMP 98.1; O2SAT 100
[2024-10-24] MEDS ORDERED: MEGESTROL ACETA20 MG PO (09:10)
[2024-10-24] MEDS ORDERED: MIRALAX17 GM PO (09:10)
[2024-10-24 12:00] VITALS: BP 135/51; PULSE 80; RESP 19; TEMP 97.6; O2SAT 100
== END 2024-10-24 11:40 | disposition home health service (06) | DRG 853 ==
LOC: ER 21:59 → ERHOLD 10-19 01:10 → MED/SURG3 10-19 02:16
PROVIDERS: ADMIT Internal Medicine; ATTEND Internal Medicine
PROC: 0DB80ZZ Excision of Small Intestine, Open Approach (ICD-10-PCS; principal; 2024-10-19 07:30)
DX: A41.9 Sepsis, unspecified organism (principal); K63.1 Perforation of intestine (nontraumatic); K65.9 Peritonitis, unspecified; K56.7 Ileus, unspecified; I10 Essential (primary) hypertension; E78.5 Hyperlipidemia, unspecified; Z90.49 Acquired absence of other specified parts of digestive tract; Z88.0 Allergy status to penicillin
CPT/HCPCS: 36415; 70450; 74177; 80053; 81001; 82550; 83605; 83690; 84484; 85025; 87040; 87086; 88304; 88307; 93005; 94799; 99284; J0330; J0666; J0694; J1100; J1885; J2003; J2405; J2765; J7030; Q9967